=== PATIENT | male | born 1965 | race Caucasian/White ===

== ENCOUNTER 2019-06-08 00:53 | Day surgery (SDC) | payer OTHER, SELFPAY ==
[2019-06-05 15:25] VITALS: BMI 30.2
[2019-06-08] MEDS: LACTATED RINGERS 1,000 ML 150 ML IV CONT (09:23)
[2019-06-08 09:28] VITALS: BP 122/83; PULSE 74; RESP 20; TEMP 36.4; O2SAT 99
--- NOTE | 2019-06-08 09:45 | PM.HPGS ---
History of Present Illness History of Present Illness Consent: Risks, benefits, and alternatives have been discussed and questions answered. Patient agrees to proceed with procedure. Chief complaint: Neoplasm Screening Narrative: Ron Paredes is a 54 year old W male referred for his 1st screening colonoscopy. Patient is asymptomatic. He has no family history of colon polyps or colon cancer. [facility] Past Medical History Medical History CAD (coronary artery disease) HLD (hyperlipidemia) Hypertension with heart disease [place] (myocardial infarction) Social History Social History Years smoked: 30 Smoking status: Current every day smoker Tobacco type: cigarettes Second hand tobacco smoke exposure: No Alcohol intake: current Drinks per week: 12 Substance use: never Substance use type: does not use Gender identity (if verbalized by the patient): Male Meds Home Medications and Allergies Home Medications Medication Instructions Recorded Confirmed Type aspirin 81 mg tablet,delayed 81 mg PO DAILY 05/12/19 06/05/19 History release carvedilol 6.25 mg tablet 6.25 mg PO Q12H 05/12/19 06/05/19 History clopidogrel 75 mg tablet 75 mg PO DAILY 05/12/19 06/05/19 History ezetimibe 10 mg tablet 10 mg PO DAILY 05/12/19 06/05/19 History fenofibric acid (choline) 135 mg 135 mg PO DAILY 05/12/19 06/05/19 History capsule,delayed release icosapent ethyl 1 gram capsule 2 gm PO BID 05/12/19 06/05/19 History lisinopril 5 mg tablet 5 mg PO DAILY 05/12/19 06/05/19 History rosuvastatin 40 mg tablet 40 mg PO DAILY 05/12/19 06/05/19 History Allergies Allergy/AdvReac Type Severity Reaction Status Date / Time No Known Allergies Allergy Mild Verified 06/08/19 09:15 Vital Signs Vital Signs - 24 hr 06/08/19 09:28 Temperature 36.4 C L Pulse Rate 74 Respiratory Rate 20 Blood Pressure 122/83 Pulse Oximetry 99 Exam Const: Orientation/consciousness: patient oriented x3 Resp: Auscultation: clear to auscultation bilaterally Cardio: Rate: regular rate Rhythm: regular rhythm Heart sounds: no murmurs GI: GI Palp: Yes Soft to palpation, No Tenderness to palpation present (GI), Yes No hepatosplenomegaly present and No Palpable mass present Auscultation: normal bowel sounds Neuro: General: patient oriented x3 and no focal motor deficits Extrem: General: no pedal edema Assessment and Plan Additional Plan Screening colonoscopy in average risk patient
--- NOTE | 2019-06-08 10:20 | P.PNAN_ITS ---
Anes - Initial Pre Proc Eval Procedure: Operation Date: 06/08/19 10:30 Proposed Procedures p Screening Colonoscopy - Shakir Aguilar MD Date/Time: 06/08/19 10:20 Surgeon: Shakir Aguilar MD Pre Op Diagnosis: Neoplasm Screening Patient Data Age: 54 Gender: M Height: 5 ft 9 in Weight: 93.7 kg Last Vital Signs Temp 36.4 C L 06/08/19 09:28 Pulse 74 06/08/19 09:28 Resp 20 06/08/19 09:28 BP 122/83 06/08/19 09:28 Pulse Ox 99 06/08/19 09:28 Allergies Allergy/AdvReac Type Severity Reaction Status Date / Time No Known Allergies Allergy Mild Verified 06/08/19 09:15 Home Medications Medication Instructions Recorded Confirmed Type aspirin 81 mg tablet,delayed 81 mg PO DAILY 05/12/19 06/05/19 History release carvedilol 6.25 mg tablet 6.25 mg PO Q12H 05/12/19 06/05/19 History clopidogrel 75 mg tablet 75 mg PO DAILY 05/12/19 06/05/19 History ezetimibe 10 mg tablet 10 mg PO DAILY 05/12/19 06/05/19 History fenofibric acid (choline) 135 mg 135 mg PO DAILY 05/12/19 06/05/19 History capsule,delayed release icosapent ethyl 1 gram capsule 2 gm PO BID 05/12/19 06/05/19 History lisinopril 5 mg tablet 5 mg PO DAILY 05/12/19 06/05/19 History rosuvastatin 40 mg tablet 40 mg PO DAILY 05/12/19 06/05/19 History Patient hx anesthesia problems: none Family hx anesthesia problems: none [facility] Past Medical History Medical History CAD (coronary artery disease) HLD (hyperlipidemia) Hypertension with heart disease [place] (myocardial infarction) Surgical History Surgical History S/P coronary artery stent placement Status post hernia repair Social History Social History Years smoked: 30 Smoking status: Current every day smoker Tobacco type: cigarettes Second hand tobacco smoke exposure: No Alcohol intake: current Drinks per week: 12 Substance use: never Substance use type: does not use Gender identity (if verbalized by the patient): Male Anes - Eval Final PreProcedure Day of Procedure 06/08/19 10:20 Patient weight: overweight Heart: regular rate and rhythm Lungs: clear to auscultation Airway: Mallampati scale class II Neurological: alert and oriented Last oral intake: >/= 8 hours Anesthetic plan: proceed Anesthesia type and monitoring: general GIVS and standard monitoring Informed Consent: The patient's anesthetic plan and its attendant risks and benefits were discussed with the patient/family/POA. Questions were solicited and answers provided to the satisfaction of the patient/family/POA.
[2019-06-08 10:52] VITALS: BP 116/69; PULSE 70; RESP 15; O2SAT 96
[2019-06-08 11:02] VITALS: BP 107/71; PULSE 68; RESP 22; O2SAT 97
[2019-06-08 11:12] VITALS: BP 116/74; PULSE 62; RESP 14; O2SAT 99
== END 2019-06-08 11:22 | disposition home or self-care (01) ==
PROVIDERS: PCP Family Medicine; Visit Provider Internal Medicine Gastroenterology
PROC: 0DJD8ZZ Inspection of Lower Intestinal Tract, Via Natural or Artificial Opening Endoscopic (ICD-10-PCS; CPT 45378; principal; 2019-06-08 10:30)
DX: Z12.11 Encounter for screening for malignant neoplasm of colon (principal); K64.8 Other hemorrhoids; K57.30 Diverticulosis of large intestine without perforation or abscess without bleeding; I10 Essential (primary) hypertension; E78.5 Hyperlipidemia, unspecified; I25.10 Atherosclerotic heart disease of native coronary artery without angina pectoris; I25.2 Old myocardial infarction; Z79.02 Long term (current) use of antithrombotics/antiplatelets; Z79.82 Long term (current) use of aspirin; Z95.5 Presence of coronary angioplasty implant and graft; F17.210 Nicotine dependence, cigarettes, uncomplicated
CPT/HCPCS: 45378; J2001; J2704; J7120

== ENCOUNTER 2020-04-08 12:39 | Outpatient (CLI) | payer OTHER, SELFPAY | END 2020-04-08 12:40 | disposition home or self-care (01) | LOC: ANHAUDIO 12:41 | PROVIDERS: PCP Family Medicine; Visit Provider Otolaryngology | DX: H93.13 Tinnitus, bilateral (principal); H69.81 Other specified disorders of Eustachian tube, right ear | CPT/HCPCS: 92557; 92567 ==

== ENCOUNTER 2020-04-16 12:16 | Emergency (ER) | payer OTHER, SELFPAY ==
[2020-04-16 12:23] VITALS: BP 121/72; PULSE 73; RESP 16; TEMP 36.4; O2SAT 99
--- NOTE | 2020-04-16 13:10 | ED.GENADULT ---
HPI - General Adult General Chief complaint: Dental/Oral Stated complaint: facial swelling Time Seen by Provider: 04/16/20 12:49 Source: patient and RN notes reviewed Mode of arrival: ambulatory Limitations: no limitations History of Present Illness HPI narrative: Patient presents today complaining of swelling to the left neck x2 days. Reports soreness with touching, but denies any additional pain. Denies any illness or sick symptoms to include ear pain, sore throat, dental pain, recent fever. He had a right myringotomy tube placed a few days ago by his ENT physician, and denies any complications related to this. He has not tried any [id number] medication for his neck symptoms. MD complaint: Left neck swelling Related Data Home Medications Medication Instructions Recorded Confirmed aspirin 81 mg tablet,delayed 81 mg PO DAILY 05/12/19 04/16/20 release carvedilol 6.25 mg tablet 6.25 mg PO Q12H 05/12/19 04/16/20 clopidogrel 75 mg tablet 75 mg PO DAILY 05/12/19 04/16/20 ezetimibe 10 mg tablet 10 mg PO DAILY 05/12/19 04/16/20 fenofibric acid (choline) 135 mg 135 mg PO DAILY 05/12/19 04/16/20 capsule,delayed release icosapent ethyl 1 gram capsule 2 gm PO BID 05/12/19 04/16/20 lisinopril 5 mg tablet 5 mg PO DAILY 05/12/19 04/16/20 rosuvastatin 40 mg tablet 40 mg PO DAILY 05/12/19 04/16/20 Allergies Allergy/AdvReac Type Severity Reaction Status Date / Time No Known Allergies Allergy Mild Verified 04/16/20 12:35 Review of Systems Review of Systems: Narrative: CONSTITUTIONAL: Denies body aches, fever, chills, or sweats. EYES: Denies visual changes, redness, or discharge. ENT: Denies rhinorrhea, congestion, sore throat, or otalgia. CARDIOVASCULAR: Denies chest pain, palpitations, or edema. RESPIRATORY: Denies cough or dyspnea. GASTROINTESTINAL: Denies abdominal pain, nausea, vomiting, or diarrhea. GENITOURINARY: Denies dysuria or hematuria. SKIN: Denies rash, itching, or wounds. Left neck swelling MUSCULOSKELETAL: Denies back pain, joint pain, or myalgia. NEUROLOGIC: Denies headache, numbness, tingling, or weakness. PSYCH: Denies depression or anxiety. [facility] Past Medical History Medical History (Updated 04/16/20 @ 13:13 by Anne-Marie Smith, [facility], ) CAD (coronary artery disease) HLD (hyperlipidemia) Hypertension with heart disease [place] (myocardial infarction) Surgical History Surgical History S/P coronary artery stent placement Status post hernia repair Family History Family History Father Hypertension Heart disease Mother Breast cancer Social History Social History Years smoked: 30 Smoking status: Current every day smoker Tobacco type: cigarettes Second hand tobacco smoke exposure: No Alcohol intake: current Drinks per week: 12 Substance use: never Substance use type: does not use Gender identity (if verbalized by the patient): Male Comments At time of signature, I have reviewed and agree with nursing past medical, surgical, social and family history unless otherwise noted. Please see nursing chart for further information. There is no relevant family history pertinent to the presenting complaint Exam Narrative: Exam Narrative: GENERAL: Well-appearing, well-nourished, and in no acute distress. HEAD: Normocephalic, atraumatic. EYES: EOMI. No redness or drainage. Conjunctivae normal. ENT: Mucous membranes pink and moist. Nares clear. No rhinorrhea. Left TM normal. Right TM with myringotomy tube. Throat normal. Uvula midline. Normal dentition. NECK: Normal AROM. Supple. Left tonsillar lymph node is swollen and tender to palpation. No other surrounding lymph nodes are abnormal. CHEST: No respiratory distress. Clear to auscultation. HEART: Regular rate and rhythm. No murmur appreciated. Normal peripheral pulse
== END 2020-04-16 13:15 | disposition home or self-care (01) ==
PROVIDERS: Emergency Provider Nurse Practitioner; PCP Family Medicine
DX: L04.0 Acute lymphadenitis of face, head and neck (principal); F17.210 Nicotine dependence, cigarettes, uncomplicated; I25.10 Atherosclerotic heart disease of native coronary artery without angina pectoris; E78.5 Hyperlipidemia, unspecified; I25.2 Old myocardial infarction; I11.9 Hypertensive heart disease without heart failure
CPT/HCPCS: 99211; G0463

== ENCOUNTER 2020-07-12 13:29 | Outpatient (CLI) | payer OTHER, SELFPAY ==
--- NOTE | ~2020-07-12 | CT_ITS ---
EXAMINATION: CT soft tissue neck w con EXAM DATE: 07/12/2020 14:40 INDICATION: R22.1 - Localized swelling, mass and lump, neck. Enlarged lymph node under left side of j aw. TECHNIQUE: Spiral CT of the neck was performed following intravenous injection of 75 mL Omnipaque 350 . Axial, coronal and sagittal images were reviewed. The dose-length product (DLP) for this examinat ion was 528.75 mGy-cm. The exposure was tailored according to patient size (auto mA exposure control ), and iterative reconstruction (ASIR) was used as additional dose reduction technique. There is no prior study for comparison. FINDINGS: There is a predominantly cystic mass at the left mandibular angle most likely an internal j ugular chain pathological lymph node measuring 2.5 x 2.1 cm. This is suspicious for metastatic disea se, assuming patient does not have infection clinically. Symmetric nasopharyngeal mucosa and unremark able thyroid, can't identify any findings suspicious for primary cancer. The submandibular and parotid glands are symmetric. The superior mediastinum is unremarkable. The airway is unremarkable. Parapharyngeal and pre-glottic fat planes are preserved. There is mild b ilateral carotid siphon arterial sclerosis with 0% stenosis. The orbits are unremarkable. Visualiz ed sinuses and mastoid air cells are well aerated. There is cervical spondylosis. IMPRESSION: Predominantly cystic mass at left mandibular angle most likely metastatic lymph node. Pl ease clinically correlate and consider histologic correlation with excisional biopsy. Reviewed, dictated and finalized at location A. IMPRESSION: Predominantly cystic mass at left mandibular angle most likely met astatic lymph node. Please clinically correlate and consider histologic correla tion with excisional biopsy.
[2020-07-12 14:30] LABS: Estimated Glomerular Filt Rate > 60
== END 2020-07-12 13:30 | disposition home or self-care (01) ==
LOC: ANHIMG 13:29
PROVIDERS: PCP Family Medicine; Visit Provider Otolaryngology
DX: R22.1 Localized swelling, mass and lump, neck (principal)
CPT/HCPCS: 70491; Q9967

== ENCOUNTER 2020-08-10 09:59 | Outpatient (CLI) | payer OTHER, SELFPAY ==
--- NOTE | ~2020-08-10 | US_ITS ---
EXAMINATION: US biopsy lymph node DATE: 08/10/2020 10:57 INDICATION: Left neck mass TECHNIQUE: The procedure including the risks and benefits was discussed with the patient. Risks discu ssed included bleeding and infection. The patient understood the risks and agreed to proceed. The sk in overlying the left neck overlying the region of the angle of the mandible was prepped and draped i n usual sterile fashion. Anesthetic was administered with 1% lidocaine subcutaneously. An 18 gauge core biopsy needle was advanced under continuous ultrasound observation to the more hypoechoic periph eral region of the lesion of interest. 3 core biopsy specimens were obtained. A 19-gauge needle was advanced into the anechoic central suspected cystic portion of the lesion but no fluid was able to be aspirated. The needle was removed and the entry site was cleaned and dressed. Post procedure ultra sound demonstrated no hemorrhage. FINDINGS: Ultrasound images demonstrate biopsy needles advanced into a 2.4 x 2.2 x 1.7 cm central ane choic, peripherally hypoechoic nodule suspicious for a centrally necrotic lymph node. The lesion is s ituated between the anterior margin of the sternocleidomastoid muscle, the inferior margin of the lef t parotid and posterior margin of the left submandibular gland. IMPRESSION: 1. Successful Ultrasound-guided biopsy of the previous noted 2.4 cm likely centrally necrotic mass/ly mph node of concern at the left neck. Reviewed, dictated and finalized at location A. IMPRESSION: 1. Successful Ultrasound-guided biopsy of the previous noted 2.4 cm likely cent rally necrotic mass/lymph node of concern at the left neck.
== END 2020-08-10 10:00 | disposition home or self-care (01) ==
PROVIDERS: PCP Family Medicine; Visit Provider Otolaryngology
DX: R22.1 Localized swelling, mass and lump, neck (principal)
CPT/HCPCS: 38505; 76942; 88305